=== PATIENT | female | born 1980 | race Caucasian/White ===

== ENCOUNTER → 2016-11-13 | Outpatient (CLI) | payer BC ==
[~2016-11-13] MED LIST: IOPAMIDOL (ISOVUE 370) 100 ML BTL IV ONE
--- NOTE | 2016-11-13 14:41 | DX ---
Hysterosalpingogram History: Infertility. Comparison: None available. Technique: A speculum was placed. The cervix was sterilely cleansed. A balloon catheter was easily i nserted into the cervix. The balloon was inflated. Sinografin contrast was injected. Fluoroscopic dayanara ges were obtained. The balloon was deflated and removed. The speculum was removed. The patient was di scharged without complication. Findings: The endometrial cavity has normal contour. Transient mobile filling defects are compatible with air bubbles. Both tubes are normal caliber and patent. Fluoro time: 0.9 minutes. Dose= 107 mGy. Impression: Normal hysterosalpingogram.
== END ==
LOC: FIMAGING 12:53
PROVIDERS: ATTEND Obstetrics & Gynecology
PROC: BU1 Imaging, Female Reproductive System, Fluoroscopy (ICD-10-PCS; principal; 2016-11-13)
DX: N94.6 Dysmenorrhea, unspecified (principal)
CPT/HCPCS: Q9967

== ENCOUNTER 2017-03-04 10:26 | Day surgery (SDC) | payer BC ==
[~2017-03-04 10:26] MED LIST changes: -IOPAMIDOL (ISOVUE 370) 100 ML BTL IV ONE; +LR 1,000 ML IV ONE
[2017-03-04] MEDS ORDERED: BUPIVACAINE 0.5% 30 ML SDV ONE (10:27)
[2017-03-04] MEDS ORDERED: SILVER NITRATE APPLICATOR 1 APPL TP ONE (10:28)
[2017-03-04] MEDS ORDERED: fentaNYL 100 MCG/2 ML INJ ONE (11:12)
[2017-03-04] MEDS ORDERED: PROPOFOL 200 MG/20 ML VIAL ONE (11:12)
[2017-03-04 11:37] LABS: % IMMATURE GRANULYOCYTES 0.2 % (0.0-1.1); ABSOLUTE IMMATURE GRANULOCYTES 0.01 10^3/uL (0.00-0.10); ADD DIFF? NO; ADD MORPH? NO; ADD SCAN? NO; ATYPICAL LYMPHOCYTE FLAG 30 (0-99); FRAGMENT RBC FLAG 0 (0-99); HEMATOCRIT 41.6 % (38.0-47.0); HEMOGLOBIN 14.2 g/dL (12.6-16.3); LEFT SHIFT FLG 0 (0-99); LIPEMIA HEMOLYSIS FLAG 90 (0-99); MEAN CELL HEMOGLOBIN 31.1 pg (27.9-34.1); MEAN CELL HEMOGLOBIN CONCENTR. 34.1 g/dL (32.4-36.7); MEAN CELL VOLUME 91.2 fL (81.5-99.8); MEAN PLATELET VOLUME 11.2 fL (8.7-11.7); PLATELET CLUMPS FLAG 0 (0-99); PLATELET COUNT 224 10^3/uL (150-400); RED BLOOD CELL COUNT 4.56 10^6/uL (4.18-5.33); RED CELL DISTRIBUTION WIDTH 12.5 % (11.5-15.2)
[2017-03-04] MEDS ORDERED: MIDAZOLAM 2 MG/2 ML VIAL ONE (11:42)
[2017-03-04] MEDS ORDERED: BUPIVACAINE 0.25% 30 ML SDV ONE (11:51)
[2017-03-04] MEDS ORDERED: LR 1,000 ML IV ONE (11:53)
[2017-03-04] MEDS ORDERED: LIDOCAINE 1% 5 ML SDV ID PRN (11:53)
[2017-03-04 11:56] LABS: COLOR YELLOW; LEUKOCYTE ESTERASE,URINE NEGATIVE (NEGATIVE); NITRITE,URINE NEGATIVE (NEGATIVE)
[2017-03-04] MEDS ORDERED: SURGIFLO MATRIX KIT WITH THROMBIN TP ONE (12:45)
[2017-03-04] MEDS ORDERED: HYDROCODONE/APAP 5/325 TAB PO PRN (13:48)
--- NOTE | 2017-03-04 14:01 | GOP ---
[f rep st] OPERATIVE REPORT DATE OF OPERATION: 03/04/2017 SURGEON: Aleja Fernandez MD ANESTHESIA: General. PREOPERATIVE DIAGNOSIS: Pelvic pain. POSTOPERATIVE DIAGNOSIS: Bilateral endometriomas and pelvic adhesive disease. PROCEDURE PERFORMED: 1. Laparoscopy. 2. Bilateral ovarian cystectomy. 3. Lysis of adhesions. FINDINGS: Bilateral ovarian endometriomas, right greater than left; right approximately 4 cm in size and left approximately 2 cm in size. Both ovaries adhesed to the posterior aspect of the uterus. Inflamed uterosacral ligaments bilaterally. SPECIMENS: Right ovarian cyst wall. INDICATIONS: The patient is a 36-year-old female who had long-standing history of dyspareunia and pelvic pain; desired laparoscopy for evaluation of endometriosis. The patient did have a previous ultrasound which showed a small (2-3 cm) simple-appearing cyst. DESCRIPTION OF PROCEDURE: Patient was taken to the operating room where she was prepped and draped in normal sterile fashion in the dorsal low lithotomy position. A surgical time-out was performed verifying the patient's name, date of , and planned procedure. A Estes catheter was placed in the patient's bladder prior to the procedure. The bivalve speculum was placed in the patient' s vagina. The anterior aspect of the cervix was grasped with a single-tooth tenaculum. The uterine manipulator was placed into the uterine cavity. The gloves were changed. The umbilicus was injected with 0.25% Marcaine. A 10 mm incision was made with an 11 blade scalpel. The subcutaneous tissue was dissected down to the fascia. The fascia was identified and tented up. The fascia was incised with a 15 blade scalpel. The fascia was tagged with 0 Vicryl. The peritoneum was identified and entered in sharply, and the Jayy port was placed in the patient's abdominal cavity. The patient was placed in Trendelenburg. The abdomen was insufflated. Approximately 5 cm to the patient' s right of her umbilicus and 2 cm caudad, the skin was transilluminated and injected with 0.25% Marcaine, and a 5 mm incision was made with an 11 blade scalpel. The trocar was placed into the pelvic cavity under direct visualization. The same procedure was performed on the patient's left. Visualization of the pelvic cavity revealed 2 bilateral ovarian endometriomas that were adhesed to the posterior aspect of the uterus; the right was approximately 4 cm in size and the left was approximately 2 cm in size. She had a normal-appearing uterus and fallopian tubes. No endometriosis lesions in the rest of the pelvic cavity. The patient's uterosacral ligaments were inflamed. The endometriomas were dissected bluntly off the posterior aspect of the uterus. The left endometrioma was drained. The right endometrioma was drained and the cyst wall was removed. The patient also had what appeared to be a luteoma on the right that was removed with gentle traction. The cyst wall was sent off for evaluation to Pathology. The ovarian cyst ayala were made hemostatic with irrigation and Surgiflo. The trocars were removed under direct visualization. The fascia was closed with 0 Vicryl. The skin was closed with 4 -0 Monocryl. The bivalve speculum was removed. The single-tooth tenaculum was removed. Hemostasis was obtained. All counts were correct x2, other than missing Aldair pad, which was never seen at the beginning of the case. GENETIC ENGINEER SURGEON: Samantha Alves MD COMPLICATIONS: None. OUTCOME: Stable to recovery room. /[id number]/MODL MTDD
== END 2017-03-04 15:55 | disposition home or self-care (01) ==
LOC: FSGY 10:26
PROVIDERS: ATTEND Obstetrics & Gynecology
PROC: 0UN44ZZ Release Uterine Supporting Structure, Percutaneous Endoscopic Approach (ICD-10-PCS; principal; 2017-03-04 12:00)
PROC: 0UT24ZZ Resection of Bilateral Ovaries, Percutaneous Endoscopic Approach (ICD-10-PCS; principal; 2017-03-04 12:00)
DX: N80.1 Endometriosis of ovary (principal); N83.11 Corpus luteum cyst of right ovary; N73.6 Female pelvic peritoneal adhesions (postinfective)
CPT/HCPCS: J2250; J2704; J3010